=== PATIENT | female | born 1945 | race Caucasian/White ===

== ENCOUNTER 2024-08-12 20:19 | Emergency (ER) | payer OTHER, SELFPAY ==
[2024-08-12 20:27] VITALS: BP 163/101
--- NOTE | 2024-08-12 22:16 | ED.GENMED ---
History of Present Illness
General
Chief Complaint: Fall
Source: patient and family
Exam Limitations: none
Time Seen by Provider: 08/12/24 21:56
History of Present Illness
History of Present Illness:
79-year-old female who presents after a fall. She was walking her dog and tripped over uneven cement. The patient injured her left face and her knees. On my evaluation she offers no complaints. She reports a little soreness to her left maxillary
region. She denies any vision changes. She is not anticoagulated. Sent by urgent care. Patient denies neck pain, back pain, numbness, tingling, motor weakness
Past History
Past History
ED Past Medical History: None
ED Past Surgical History:
Social History
Tobacco: Former smoker
Alcohol: None
Drug: None
Personal:
Living: with family
Employment: Retired
Family History
Family History: Other (Noncontributory)
Phy Exam
Physical Exam
Physical Exam:
CONSTITUTIONAL Patient alert and oriented to person, place and time. Well-appearing. Vital signs reviewed.
HEAD abrasion noted to the area to the left lateral eyebrow. Abrasion noted to left maxillary region with minor swelling. No crepitus or bony deformities..
EYES eyelids normal to inspection, Extraocular muscles intact, Conjunctiva normal, Sclera normal. Pupils are round and reactive
NECK normal range of motion, Trachea midline, no jugular venous distention. No midline tenderness
RESPIRATORY CHEST No respiratory distress noted, Chest expansion equal, Bilateral breath sounds clear.
CARDIOVASCULAR regular rate and rhythm, Heart sounds normal.
ABDOMEN abdomen nontender, Bowel sounds normal. No distention.
BACK normal inspection, no obvious deformities. No midline tenderness
UPPER EXTREMITY range of motion normal, Motor strength normal, no cyanosis, no edema.
LOWER EXTREMITY range of motion normal, Motor strength normal, no cyanosis, no edema.
NEURO Speech normal, No focal motor deficits, [place] coma scale 15, Memory normal, Cranial Nerves intact to screening exam.
SKIN skin warm, dry, and normal in color.
Course
Orders/Labs/Results
Orders:
Orders
08/12/24 20:[address] [CT Head W/o Iv Contrast] Urgent
Comment:
Reason For Exam: fall with head strike
CR Knee- Right 4 Or More View* Urgent
Comment:
Reason For Exam: pain
08/12/24 20:39
Cervical Spine wo Contrast CT [CT Cervical Spine W/o Iv Contr] Urgent
Comment:
Reason For Exam: fall with head strike
08/12/24 20:41
Knee, Left 4 or More Views [CR Knee - Left 4 Or More View*] Urgent
Comment:
Reason For Exam: fall
08/12/24 21:02
Facial Bones wo Contrast CT [CT Facial Bones W/o Iv Contras] Urgent
Comment: PER [employer]
Reason For Exam: FALL
Vital Signs
Initial and Last Documented VS:
Initial Vital Signs
Temp Pulse Resp BP Pulse Ox
98.2 F 76 16 163/101 99
08/12/24 20:27 08/12/24 20:27 08/12/24 20:27 08/12/24 20:27 08/12/24 20:27
Last Documented Vital Signs
Temp Pulse Resp BP Pulse Ox
98.2 F 76 16 163/101 99
08/12/24 20:27 08/12/24 20:27 08/12/24 20:27 08/12/24 20:27 08/12/24 20:27
MDM/Problems Addressed
MDM/Problems Addressed:
Contusion, abrasions, head injury, uncontrolled hypertension
*Radiology
Radiology exam reviewed: radiology read reviewed
*Pulse Oximetry
Patient hypoxic: no
*Collections Professional Interpretation
Rate: normal
Interpretation: normal
Rhythm: sinus
*Critical Care Note
Total Time (30-74mins, 75-104mins- exclusive of procedures): Not Applicable
Data Reviewed
Source: patient and family
Patient Management
Escalation/DeEscalation of care consider admission/obs:
Patient appears well. CT imaging negative. Patient offers no complaints.
ED Attending Note
-
Portions of this chart may have been created with voice recognition software.� Occasional wrong word or��sound alike� substitutions may have occurred due to the inherent limitations of voice recognition software.
Discharge Plan
Departure
Patient Disposition: Home (Routine Discharge)
Date of Disposition: 08/12/24
Time of Disposition: 22:20
Patient with high blood pressure during this ER visit?: Yes
Discharge Problem:
Head injury, Abrasion, Contusion
Instructions: Head Injury in Adults (DC), Contusion (DC), Skin Abrasions (DC), BLOOD PRESSURE
Prescriptions:
No Action
lorazepam 0.5 MG tablet
0.5 mg PO TID Qty: 10 0RF
Activity Restrictions/Additional Instructions:
Please rest and ice your injuries. Please use Vaseline on your abrasions. Keep wounds clean and dry. Return immediately for vomiting, changes in mentation, weakness of any kind or any other concern
Interventions
Interventions:
*General Assessment Last Done: 08/12/24 20:27
*Neglect/Abuse Screening Last Done: 08/12/24 20:27
*ED COVID-19 Vaccine History Last Done: 08/12/24 20:27
Discharge Date and Time
Print Language: WALLISIAN
[2024-08-12 22:18] VITALS: BP 178/89; BMI 20.8
[2024-08-12] MEDS: ADACEL 0.5 ML IM (22:22)
== END 2024-08-12 22:31 | disposition home or self-care (01) ==
LOC: EMR 20:19
PROVIDERS: EMERGENCY PHYSICIAN Emergency Medicine; FAMILY PHYSICIAN Family Medicine
DX: S09.90XA Unspecified injury of head, initial encounter (principal); S00.83XA Contusion of other part of head, initial encounter; S00.212A Abrasion of left eyelid and periocular area, initial encounter; S00.81XA Abrasion of other part of head, initial encounter; W01.0XXA Fall on same level from slipping, tripping and stumbling without subsequent striking against object, initial encounter; Y93.K1 Activity, walking an animal; Z23 Encounter for immunization; I10 Essential (primary) hypertension; Z87.891 Personal history of nicotine dependence
CPT/HCPCS: 99284; 90471; 70450; 70486; 72125; 73564; 90715